=== PATIENT | male | born 1955 | race Caucasian/White ===

== ENCOUNTER 2018-06-22 08:30 | Emergency (ER) | payer MEDICARE ==
[~2018-06-22] VITALS: Ht 198.1 cm; Wt 100.0 kg
[~2018-06-22 08:30] MED LIST: AMOXICILLIN500 MG PO; BUMETANIDE1 MG PO; CIPROFLOXACN500 MG PO; FUROSEMIDE 20 MG; JANUVIA50 MG PO; LANTUS SLIDING SCALE; LEFLUNOMIDE PO; METFORMIN500 MG PO; METOLAZONE5 MG PO; POT CHLORIDE20 ME3 PO; WARFARIN10 MG PO; ZESTRIL/PRIN5 MG/TA1 PO; [UNRECOGNIZED DRUG - REMARK]
[2018-06-22] MEDS ORDERED: DOXYCYC MONO100 M1 PO (08:48)
[2018-06-22 08:57] VITALS: BP 165/96
== END 2018-06-22 09:56 | disposition home or self-care (01) ==
LOC: ED 08:30
DX: S91.112A Laceration without foreign body of left great toe without damage to nail, initial encounter (principal); E11.42 Type 2 diabetes mellitus with diabetic polyneuropathy; I48.91 Unspecified atrial fibrillation; I50.9 Heart failure, unspecified; X58.XXXA Exposure to other specified factors, initial encounter

== ENCOUNTER 2018-11-05 09:32 | Inpatient (IN) | payer MEDICARE ==
[~2018-11-05] VITALS: Ht 198.1 cm; Wt 112.0 kg
[2018-11-05] VITALS (11 sets, daily range): BP systolic 100–135; BP diastolic 61–86
[~2018-11-05 09:32] MED LIST changes: +DOXYCYC MONO100 M1 PO
--- NOTE | 2018-11-05 10:02 | NUR ---
PT TO ROOM VIA SCOOTER IN NO DISTRESS
[2018-11-05 10:31] LABS: HEMATOCRIT 39.9 % (39.0-50.0); HEMOGLOBIN 12.2 g/dl (14.0-18.0); IMMATURE GRANULOCYTES 0.2 % (0.0-5.0); MEAN CELL VOLUME 91.5 fL CALC (80.0-100.0); MEAN CORPUSCULAR HGB CONC 30.6 g/L CALC (32.0-36.0); NEUT# 3.25 thou/uL (1.82-7.42); RED BLOOD COUNT 4.36 mill/uL (4.70-6.10); RED CELL DISTRI WIDTH 15.8 % (11.5-15.5)
[2018-11-05 10:44] LABS: BILIRUBIN, TOTAL 0.9 mg/dL (0.0-1.4); POTASSIUM 3.8 mmol/l (3.5-5.1); TOTAL PROTEIN 7.2 g/dL (6.3-8.2)
[2018-11-05 10:46] LABS: ALBUMIN 4.1 g/dL (3.2-5.0)
--- NOTE | 2018-11-05 11:00 | NUR ---
PT SITTING ON EDGE OF STRETHCER, DUE TO BEING UNCOMFORTABLE LAYING- AWAITING RESULTS.
--- NOTE | 2018-11-05 11:41 | NUR ---
RT AT BEDSIDE WITH ROWAN TX
--- NOTE | 2018-11-05 11:43 | NUR ---
MD AT BEDSIDE TO EXPLAIN FINDINGS AND ADMISSION
[2018-11-05 12:15] LABS: INTERNATIONAL NORMALIZED RATIO 3.7 RATIO (0.7-1.3); PROTHROMBIN TIME 38.5 SECONDS (9.0-12.5)
--- NOTE | 2018-11-05 12:43 | NUR ---
PT STATES HAVING BREATHING IMPROVMENT WITH NEB TX- AWAITING ADMISSION
--- NOTE | 2018-11-05 13:19 | NUR ---
REPORT CALLED TO ODETTE SULLIVAN- ACCPEPTED PT
--- NOTE | 2018-11-05 13:38 | NUR ---
Admission Note Report Given to: ODETTE SULLIVAN Transported by: Wheelchair X Stretcher Transported with: X Nurse Transporter X Patent IV O2 X Hemmer Chainstitch TRANSPORTED TO [facility] WITHOUT INCIDENT- AYANNA CHAIR BROUGHT WITH PT TO ROOM
--- NOTE | 2018-11-05 15:31 | NUR ---
REPORT RECEIVED FROM SAJAN IN ED, PT ARRIVED ON UNIT VIA STRETCHER AND TRANSFERRED TO BED. ALERT AND ORIENTED X 4, ORIENTED TO ROOM AND CALL LOUIS. C/O BEING COLD, GENERALISED PAIN @ 10/10 MAINLY TO EXTREMETIES, MENTAL HEALTH NURSE NOTIFIED AND WROTE ORDERS, PAIN ISSUE ADDRESSED, TELE MONITOR IN PLACE, CALL LOUIS IN REACH, WILL CONITNUE TO MONITOR.
[2018-11-05 17:06] LABS: URINE BILIRUBIN - DIPSTICK NEGATIVE (NEGATIVE); URINE BLOOD DIPSTICK SMALL (NEGATIVE); URINE COLOR YELLOW; URINE GLUCOSE - DIPSTICK NEGATIVE (NEGATIVE); URINE KETONE NEGATIVE (NEGATIVE); URINE LEUK ESTERASE NEGATIVE (NEGATIVE); URINE NITRITE - DIPSTICK NEGATIVE (Negative); URINE PROTEIN - DIPSTICK 30 mg/dL (NEG-TRACE); URINE SPECIFIC GRAVITY 1.015; URINE UROBILINOGEN - DIPSTICK 0.2 E.U./dL (0.2)
[2018-11-05 17:17] LABS: MAGNESIUM 1.7 mg/dL (1.6-2.3)
--- NOTE | 2018-11-05 17:44 | NUR ---
RT at [facility] for stat EKG
--- NOTE | 2018-11-05 18:04 | NUR ---
TRANSFERRED TO [facility] AT THIS TIME AND TRANSPORTED TO CT, THEN WILL BE TRANSFERRED TO ICU ORDERED BY MEDICAL STAFF.
--- NOTE | 2018-11-05 18:05 | NUR ---
pt transferred to CT scan via stretcher with portable o2 in stable condition; Gorge Kelly RN and Ashley Edmond CNA remains with pt
--- NOTE | 2018-11-05 18:06 | NUR ---
INFORMED LEA PIPELINES LABORER RE: LACTIC ACID OF 3.4
--- NOTE | 2018-11-05 18:15 | NUR ---
pt arrived to ICU via stretcher accompanied by this caption writer and Ashley Edmond CNA in stable condition; pt alert and oriented; pt with complaints of pain to lower extremities; resp even and unlabored; hi lakesha o2 per nc at 10L; bipap at bedside and to be initiated; skin color wnl; hr irreg/ wide qrs complex; rate 101 on monitor; abd soft/distended with bs present; no bm noted; no urine to inspect at this time; #20 in lh intact; plan of care/ meds/ procedures/ transfer explained; will continue to monitor
--- NOTE | 2018-11-05 18:29 | NUR ---
16 Fr westfall catheter inserted using sterile technique x1 attempt per Ashley Wilson LPN; clear yellow urine noted; cath moreno device intact;
--- NOTE | 2018-11-05 18:35 | NUR ---
report given to Gorge Garcia LPN
--- NOTE | 2018-11-05 18:35 | NUR ---
CALLED Bill DIAZ RE: PT IN ICU, NEED TRANSFER ORDERS AND INFORMED RE: LACTIC ACID OF 3.4 RECORDS ANALYSIS MANAGER NOT WANTING TO ADD FLUIDS DUE TO FLUID CHALLENGE. HE WILL PLACE ORDERS IN.
[2018-11-05 18:46] LABS: URINE SQUAMOUS EPITHELIAL CELL FEW EPI/hpf (0-FEW)
--- NOTE | 2018-11-05 19:00 | NUR ---
awake. coarse breath sounds bilat. has moist nonprod cough. rt @ bedside & bipap on. instructed pt about need for bipap. cafeteria monitor shows a fib ivcd pvcs. #20 lt hand saline lock. westfall cath in place. urine blood tinged yellow. fall precautions cont.
--- NOTE | 2018-11-05 19:10 | NUR ---
erin @ bedside. pt requested h2o. sip given.
--- NOTE | 2018-11-05 19:11 | NUR ---
PLACED ON BIPAP ORDERED MY MD. PLACED ON 19/02, RATE 15 WITH 50%. WILL CONTINUE TO MONITOR.
--- NOTE | 2018-11-05 19:15 | NUR ---
Dr Rowley called per underwriter mortgage loan; orders reviewed/ clarifications needed; orders to hold Bumex gtt received until CT report reviewed per MD; reported to Gorge Garcia LPN
--- NOTE | 2018-11-05 19:25 | NUR ---
requested bipap to be d/c'd. expresses diff resps, anxiety & pain. morphine 2mg ivp given. lab here. blood drawn.
--- NOTE | 2018-11-05 19:35 | NUR ---
resting quietly. no apparent distress.
--- NOTE | 2018-11-05 20:15 | NUR ---
jean carlos called this check writer. admits she is unable to get on computer. ct results given. orders rec'd.
--- NOTE | 2018-11-05 22:00 | NUR ---
eyes closed. no apparent distress. environmental monitoring technician shows a fib ivcd pvcs. bipap cont.
[2018-11-06] VITALS (12 sets, daily range): BP systolic 110–152; BP diastolic 55–87
--- NOTE | 2018-11-06 00:01 | NUR ---
awakens easily then returns to sleep. no distress. bipap cont.
--- NOTE | 2018-11-06 00:10 | NUR ---
lab here. blood drawn.
--- NOTE | 2018-11-06 02:00 | NUR ---
resting quietly. resps even & unlabored. bipap cont.
--- NOTE | 2018-11-06 04:00 | NUR ---
eyes closed. no apparent distress. nuclear monitoring technician shows a fib pvcs ivcd.
--- NOTE | 2018-11-06 06:11 | NUR ---
lab here. blood drawn.
[2018-11-06 06:50] LABS: INTERNATIONAL NORMALIZED RATIO 4.5 RATIO (0.7-1.3); PROTHROMBIN TIME 46.6 SECONDS (9.0-12.5)
[2018-11-06 07:06] LABS: ALBUMIN 3.9 g/dL (3.2-5.0); BILIRUBIN, TOTAL 0.9 mg/dL (0.0-1.4); CREATININE 1.9 mg/dL (0.7-1.3); POTASSIUM 4.1 mmol/l (3.5-5.1); TOTAL PROTEIN 6.7 g/dL (6.3-8.2)
--- NOTE | 2018-11-06 07:08 | NUR ---
REPORT RECVD FROM LUL DONG AT START OF SHIFTS.
--- NOTE | 2018-11-06 07:25 | NUR ---
PT ON BIPAP. C/O CHRONIC PAIN TO BILATERAL UPPER ARMS, JOINTS DISFORMED FROM RHEUMATOID ARTHRITIS. CATH AGUILERA IN PLACE, BLOODY URINE DRAINING INTO BAG. PT JOKING WITH STAFF. BIPAP REMOVED MOMENTARILY TO DRINK WATER. ABD SOFT/NONTENDER, ACTIVE BS. NO EDEMA NOTED. STRONG PULSES x4. FEET HOT, TOES RED, SWOLLEN, BILATERALLY. FERNANDEZ. LUNG SOUNDS WHEEZING/CRACKLES/DIMINISHED. EYES PERRLA @3. PT STATES HE LIVES BY HIMSELF BUT HIS NEICE COMES BY TO HELP & HE HAS A LADY THAT COMES BY 8HR/WEEK TO CLEAN. PT AWARE SPUTUM SAMPLE IS NEEDED. LABS & RADIOLOGY REVIEWED.
--- NOTE | 2018-11-06 07:39 | NUR ---
PT SITTING UP IN BED, EATING BREAKFAST. BIPAP PAUSED, PT ON 10L NC. PT REQUEST NONSWEET GUMMY WORMS WITH CBD OIL FROM PERSONAL BAG FOR PAIN. ADVISED PT WILL SPEAK TO MD ABOUT THIS FOR OK TO GIVE PT. PT COOPERATIVE/FRIENDLY WITH STAFF. INVESTOR RELATIONS ANALYST ASSISTING PT WITH BREAKFAST.
--- NOTE | 2018-11-06 08:00 | NUR ---
Vancomycin consult Age: 63 yo Serum creatinine: 1.9 mg/dL Height: 78.0 Inches Weight (kg): 112. IBW (kg): 91.40 Dosing wt(kg): 112. Estimated Creatinine clearance (ml/min): 51.4 CRCL method: Cockcroft and Gault using ibw(default). Vd (liters): 78.4 (factor used: 0.7 L/kg) Lewis (hr-1): 0.047 Half life (hrs): 14.75 1000 mg Q12H with an expected Cpeak of 28 mcg/ml and an expected Ctrough of 17 mcg/ml
--- NOTE | 2018-11-06 08:07 | NUR ---
SPUTUM SAMPLE GIVEN.
--- NOTE | 2018-11-06 08:20 | NUR ---
pt sitting up on side of bed. playfull with staff. talking on the phone.
--- NOTE | 2018-11-06 08:40 | NUR ---
PT ASSISTED UP TO BSC FOR BM. SPUTUM CULTURE SENT TO LAB
--- NOTE | 2018-11-06 09:01 | NUR ---
PT ASSISTED BACK TO BED, RETURNED TO BIPAP.
--- NOTE | 2018-11-06 09:37 | NUR ---
DR WILLS @BEDSIDE, ASSESSING PT. MD STATES GUMMY WORMS WITH CBD OIL IS OK TO TAKE.
--- NOTE | 2018-11-06 09:51 | NUR ---
states to hold am po meds. admin @bedside for rounds.
--- NOTE | 2018-11-06 10:41 | NUR ---
TRANSFER PENDING DR WILLS CONSULTING WITH DR DIAZ. YANG WILLIAMSON PENDING APPROVAL FROM [facility].
--- NOTE | 2018-11-06 11:49 | NUR ---
PT SITTING UP ON SIDE OF BED, EATING LUNCH. RT @BEDSIDE. PLACED PT ON 10L HUMIDIFIED O2 NC. PT EDUCATED ON MEDICATION GIVEN.
--- NOTE | 2018-11-06 11:59 | NUR ---
PER RAMON RT, FROM DR WILLS, TRY TO KEEP PT OFF BIPAP AND TRY TO WEAN DOWN 02. RT TITRATED O2 TO 8L NC. WILL CONTINUE TO MONITOR. TRANSFER PENDING CONSULT WITH DR DIAZ.
--- NOTE | 2018-11-06 12:15 | NUR ---
SPOKE WITH CYDNEY, NURSING QA SOFTWARE TEST ENGINEER, @ [facility] RE: BED. WCB.
--- NOTE | 2018-11-06 12:24 | NUR ---
DR DIAZ ACCEPTED PT FOR PCU
--- NOTE | 2018-11-06 12:46 | NUR ---
ASSISTED PT WITH BEDBATH, INCLUDING PERICARE. PT BRUSHED OWN TEETH. CHANGED GOWN. PT AWARE OF TRANSFER TO [facility]. TRANSFER PENDING BED ASSIGNMENT THEN TRANSPORTATION.
--- NOTE | 2018-11-06 13:30 | NUR ---
PT MANEUVERED SELF BACK TO BED. CALLBELL W/IN REACH. CASE MANAGEMENT @BEDSIDE FOR TRANSFER SIGNATURES.
--- NOTE | 2018-11-06 13:51 | NUR ---
PT RETURNED TO BED. ASKED TO BE COVERED UP SO HE "CAN SLEEP UNTIL TRANSFER COMPLETE". CALLBELL W/IN REACH.
--- NOTE | 2018-11-06 14:02 | NUR ---
CYDNEY CALLED BACK WITH A BED ASSIGNMENT. PT WILL GO TO 322B.
--- NOTE | 2018-11-06 14:04 | NUR ---
[facility], WILL SEND TRANSPORTATION IN 30MINS FOR TRANSFER.
--- NOTE | 2018-11-06 14:30 | NUR ---
[facility] @bedside.
--- NOTE | 2018-11-06 14:54 | NUR ---
PT OUT THE DOOR WITH [facility] IN STABLE CONDITION. PTS MOBILITY DEVICE MOVED TO ICU STORAGE ROOM TO HOLD UNTIL ANNAMARIA AKBAR COMES TO PICK IT UP. MARGAUX & CASE MANAGEMENT AWARE
--- NOTE | 2018-11-06 15:15 | NUR ---
REPORT CALLED TO ADRIANA AT [phone], INCLUDING PT IN POSSESSION OF CBD OIL GUMMY WORMS.
== END 2018-11-06 14:54 | DRG 291 ==
LOC: ED 09:32 → ED-I 11:32 → ED 12:21 → MS2 12:22 → ICU 12:22
PROVIDERS: Emergency Medicine; Nurse Practitioner Family; ADMIT Internal Medicine; ATTEND Internal Medicine Nephrology
PROC: 5A09357 Assistance with Respiratory Ventilation, Less than 24 Consecutive Hours, Continuous Positive Airway Pressure (ICD-10-PCS; principal; 2018-11-05)
PROC: 0T9B70Z Drainage of Bladder with Drainage Device, Via Natural or Artificial Opening (ICD-10-PCS; 2018-11-05)
DX: I13.0 Hypertensive heart and chronic kidney disease with heart failure and stage 1 through stage 4 chronic kidney disease, or unspecified chronic kidney disease (principal); J96.01 Acute respiratory failure with hypoxia; J18.9 Pneumonia, unspecified organism; I50.23 Acute on chronic systolic (congestive) heart failure; J91.8 Pleural effusion in other conditions classified elsewhere; N17.9 Acute kidney failure, unspecified; E11.22 Type 2 diabetes mellitus with diabetic chronic kidney disease; N18.3 Chronic kidney disease, stage 3 (moderate); E11.21 Type 2 diabetes mellitus with diabetic nephropathy; M06.9 Rheumatoid arthritis, unspecified; I48.2 Chronic atrial fibrillation; D63.1 Anemia in chronic kidney disease; R91.8 Other nonspecific abnormal finding of lung field; R79.1 Abnormal coagulation profile; T45.515A Adverse effect of anticoagulants, initial encounter; I73.89 Other specified peripheral vascular diseases; I45.10 Unspecified right bundle-branch block; Z79.01 Long term (current) use of anticoagulants

== ENCOUNTER 2018-12-05 08:25 | Emergency (ER) | payer MEDICARE ==
[~2018-12-05] VITALS: Ht 198.1 cm; Wt 120.0 kg
[2018-12-05 09:51] LABS: HEMOGLOBIN 10.9 g/dl (14.0-18.0); IMMATURE GRANULOCYTES 0.6 % (0.0-5.0); MEAN CELL VOLUME 95.9 fL CALC (80.0-100.0); MEAN CORPUSCULAR HGB 28.2 pG CALC (26.0-32.0); MEAN CORPUSCULAR HGB CONC 29.5 g/L CALC (32.0-36.0); NEUT# 3.79 thou/uL (1.82-7.42); RED BLOOD COUNT 3.86 mill/uL (4.70-6.10); RED CELL DISTRI WIDTH 18.5 % (11.5-15.5)
[2018-12-05 09:51] LABS: URINE BILIRUBIN - DIPSTICK NEGATIVE (NEGATIVE); URINE BLOOD DIPSTICK TRACE-INTACT (NEGATIVE); URINE COLOR YELLOW; URINE GLUCOSE - DIPSTICK NEGATIVE (NEGATIVE); URINE KETONE NEGATIVE (NEGATIVE); URINE LEUK ESTERASE NEGATIVE (NEGATIVE); URINE NITRITE - DIPSTICK NEGATIVE (Negative); URINE PROTEIN - DIPSTICK TRACE mg/dL (NEG-TRACE); URINE UROBILINOGEN - DIPSTICK 0.2 E.U./dL (0.2)
[2018-12-05 10:04] LABS: INTERNATIONAL NORMALIZED RATIO 2.1 RATIO (0.7-1.3); PROTHROMBIN TIME 21.4 SECONDS (9.0-12.5)
[2018-12-05 10:06] LABS: ALBUMIN 3.6 g/dL (3.2-5.0); BILIRUBIN, TOTAL 1.7 mg/dL (0.0-1.4); CREATININE 1.5 mg/dL (0.7-1.3); POTASSIUM 3.7 mmol/l (3.5-5.1); TOTAL PROTEIN 6.6 g/dL (6.3-8.2)
[2018-12-05] MEDS ORDERED: COUMADIN5 MG PO (11:22)
[2018-12-05] MEDS ORDERED: WARFARIN10 MG PO (11:23)
[2018-12-05] MEDS ORDERED: TAMSULOSIN HCL0.4 MG PO (11:25)
[2018-12-05] MEDS ORDERED: HYDROCO/APAP1 TA9 PO (11:26)
[2018-12-05] MEDS ORDERED: POT CHLORIDE10 ME1 PO (11:26)
[2018-12-05] MEDS ORDERED: KEFLEX500 M1 PO (11:54)
[2018-12-05 12:04] VITALS: BP 151/63
== END 2018-12-05 12:25 | disposition home or self-care (01) ==
LOC: ED 08:25
PROVIDERS: Emergency Medicine
PROC: 0T9B70Z Drainage of Bladder with Drainage Device, Via Natural or Artificial Opening (ICD-10-PCS; principal; 2018-12-05)
DX: N40.1 Benign prostatic hyperplasia with lower urinary tract symptoms (principal); R33.8 Other retention of urine; E11.9 Type 2 diabetes mellitus without complications; I50.9 Heart failure, unspecified; I48.91 Unspecified atrial fibrillation

== ENCOUNTER 2018-12-07 15:17 | Emergency (ER) | payer MEDICARE ==
[~2018-12-07] VITALS: Ht 198.1 cm; Wt 125.0 kg
[~2018-12-07 15:17] MED LIST changes: +COUMADIN5 MG PO; +HYDROCO/APAP1 TA9 PO; +KEFLEX500 M1 PO; +POT CHLORIDE10 ME1 PO; +TAMSULOSIN HCL0.4 MG PO
[2018-12-07 16:09] VITALS: BP 126/69
== END 2018-12-07 17:20 | disposition home or self-care (01) ==
LOC: ED 15:17
PROC: 0T2BX0Z Change Drainage Device in Bladder, External Approach (ICD-10-PCS; principal; 2018-12-07)
DX: T83.091A Other mechanical complication of indwelling urethral catheter, initial encounter (principal); R33.9 Retention of urine, unspecified; E11.9 Type 2 diabetes mellitus without complications; I48.91 Unspecified atrial fibrillation; I50.9 Heart failure, unspecified; Y84.6 Urinary catheterization as the cause of abnormal reaction of the patient, or of later complication, without mention of misadventure at the time of the procedure

== ENCOUNTER 2018-12-11 18:50 | Emergency (ER) | payer MEDICARE ==
[~2018-12-11] VITALS: Ht 198.1 cm; Wt 122.7 kg
[2018-12-11 20:26] VITALS: BP 134/76
== END 2018-12-11 20:25 | disposition home or self-care (01) ==
LOC: ED 18:50
DX: T83.038A Leakage of other urinary catheter, initial encounter (principal)

== ENCOUNTER 2018-12-13 08:56 | Emergency (ER) | payer MEDICARE ==
[~2018-12-13] VITALS: Ht 198.1 cm; Wt 100.0 kg
[2018-12-13] MEDS ORDERED: LAMISIL AT1 % EX (10:04)
[2018-12-13 10:36] VITALS: BP 139/90
== END 2018-12-13 11:10 | disposition home or self-care (01) ==
LOC: ED 08:56
PROC: 0T2BX0Z Change Drainage Device in Bladder, External Approach (ICD-10-PCS; principal; 2018-12-13)
DX: T83.031A Leakage of indwelling urethral catheter, initial encounter (principal); N40.1 Benign prostatic hyperplasia with lower urinary tract symptoms; R33.8 Other retention of urine; E11.9 Type 2 diabetes mellitus without complications; I48.91 Unspecified atrial fibrillation; M06.9 Rheumatoid arthritis, unspecified; I50.9 Heart failure, unspecified; B35.6 Tinea cruris; Y84.6 Urinary catheterization as the cause of abnormal reaction of the patient, or of later complication, without mention of misadventure at the time of the procedure

== ENCOUNTER 2019-01-07 21:02 | Emergency (ER) | payer MEDICARE ==
[~2019-01-07] VITALS: Ht 198.1 cm; Wt 110.0 kg
[~2019-01-07 21:02] MED LIST changes: +LAMISIL AT1 % EX
[2019-01-07 21:49] LABS: HEMATOCRIT 36.6 % (39.0-50.0); HEMOGLOBIN 11.1 g/dl (14.0-18.0); IMMATURE GRANULOCYTES 0.5 % (0.0-5.0); MEAN CELL VOLUME 95.1 fL CALC (80.0-100.0); MEAN CORPUSCULAR HGB 28.8 pG CALC (26.0-32.0); MEAN CORPUSCULAR HGB CONC 30.3 g/L CALC (32.0-36.0); NEUT# 10.19 thou/uL (1.82-7.42); RED BLOOD COUNT 3.85 mill/uL (4.70-6.10); RED CELL DISTRI WIDTH 16.2 % (11.5-15.5)
[2019-01-07 21:57] LABS: ALBUMIN 3.8 g/dL (3.2-5.0); BILIRUBIN, TOTAL 1.5 mg/dL (0.0-1.4); CREATININE 1.6 mg/dL (0.7-1.3); POTASSIUM 4.1 mmol/l (3.5-5.1); TOTAL PROTEIN 6.8 g/dL (6.3-8.2)
[2019-01-07 22:17] LABS: INTERNATIONAL NORMALIZED RATIO 1.2 RATIO (0.7-1.3); PROTHROMBIN TIME 12.9 SECONDS (9.0-12.5)
[2019-01-07 22:26] LABS: URINE BILIRUBIN - DIPSTICK NEGATIVE (NEGATIVE); URINE BLOOD DIPSTICK MODERATE (NEGATIVE); URINE COLOR YELLOW; URINE GLUCOSE - DIPSTICK NEGATIVE (NEGATIVE); URINE KETONE NEGATIVE (NEGATIVE); URINE NITRITE - DIPSTICK NEGATIVE (Negative); URINE PROTEIN - DIPSTICK 30 mg/dL (NEG-TRACE); URINE SPECIFIC GRAVITY 1.015; URINE UROBILINOGEN - DIPSTICK 0.2 E.U./dL (0.2)
[2019-01-07] MEDS ORDERED: ZPAK PO (22:31)
[2019-01-07] MEDS ORDERED: CEPHALEXIN500 M1 PO (22:31)
[2019-01-07 22:32] LABS: URINE LEUK ESTERASE SMALL (NEGATIVE)
[2019-01-07 22:33] LABS: URINE BACTERIA FEW hpf; URINE SQUAMOUS EPITHELIAL CELL FEW EPI/hpf (0-FEW)
[2019-01-07 22:42] LABS: URINE RBC TNTC RBC/hpf (0-5)
[2019-01-07 22:43] LABS: URINE WBC 20-50 WBC/hpf (0-5)
[2019-01-07 23:06] VITALS: BP 145/72
== END 2019-01-07 23:02 | disposition left against medical advice (07) ==
LOC: ED 21:02
PROVIDERS: Emergency Medicine
PROC: 0T9B70Z Drainage of Bladder with Drainage Device, Via Natural or Artificial Opening (ICD-10-PCS; principal; 2019-01-07)
DX: N39.0 Urinary tract infection, site not specified (principal); R33.9 Retention of urine, unspecified; R30.0 Dysuria; R50.9 Fever, unspecified; J18.9 Pneumonia, unspecified organism; Z91.19 Patient's noncompliance with other medical treatment and regimen; B96.89 Other specified bacterial agents as the cause of diseases classified elsewhere

== ENCOUNTER 2019-01-13 11:21 | Emergency (ER) | payer MEDICARE ==
[~2019-01-13] VITALS: Ht 198.1 cm; Wt 119.0 kg
[~2019-01-13 11:21] MED LIST changes: +CEPHALEXIN500 M1 PO; +ZPAK PO
[2019-01-13 12:40] VITALS: BP 158/110
[2019-01-13 12:48] LABS: URINE BILIRUBIN - DIPSTICK NEGATIVE (NEGATIVE); URINE BLOOD DIPSTICK MODERATE (NEGATIVE); URINE COLOR YELLOW; URINE GLUCOSE - DIPSTICK NEGATIVE (NEGATIVE); URINE KETONE NEGATIVE (NEGATIVE); URINE LEUK ESTERASE NEGATIVE (Negative); URINE NITRITE - DIPSTICK NEGATIVE (Negative); URINE PH 6.5 (4.5-8.0); URINE PROTEIN - DIPSTICK 100 mg/dL (NEG-TRACE); URINE UROBILINOGEN - DIPSTICK 0.2 E.U./dL (0.2)
[2019-01-13 12:52] LABS: URINE CLARITY CLEAR
== END 2019-01-13 12:53 | disposition home or self-care (01) ==
LOC: ED 11:21
PROVIDERS: Emergency Medicine
PROC: 0T2BX0Z Change Drainage Device in Bladder, External Approach (ICD-10-PCS; principal; 2019-01-13)
DX: T83.031A Leakage of indwelling urethral catheter, initial encounter (principal); R33.9 Retention of urine, unspecified; E11.9 Type 2 diabetes mellitus without complications; I48.91 Unspecified atrial fibrillation; I50.9 Heart failure, unspecified; M06.9 Rheumatoid arthritis, unspecified; Y84.6 Urinary catheterization as the cause of abnormal reaction of the patient, or of later complication, without mention of misadventure at the time of the procedure

== ENCOUNTER 2019-01-16 10:15 | Observation (INO) | payer MEDICARE ==
[~2019-01-16] VITALS: Ht 198.1 cm; Wt 133.0 kg
--- NOTE | 2019-01-16 10:15 | NUR ---
PT ARRIVES VIA ELECTRIC WC IN NO DISTRESS.
[2019-01-16] MEDS ORDERED: ZESTRIL/PRINIV2.5 MG PO (10:35)
[2019-01-16 11:17] LABS: MAGNESIUM 1.4 mg/dL (1.6-2.3)
--- NOTE | 2019-01-16 11:47 | NUR ---
PT WITH IV ESTABLISHED, MAGNESIUM STARTED. GRANDSON AT BEDSIDE.
--- NOTE | 2019-01-16 12:19 | NUR ---
MEAL TRAY PROVIDED. MAGNESIUM INFUSING. PT SITTING UP AT BEDSIDE FOR COMFORT.
--- NOTE | 2019-01-16 13:21 | NUR ---
PT ASSISTED BACK INTO STRETCHER, AWARE OF PENDING ADMISSION.
[2019-01-16 14:30] VITALS: BP 143/76
--- NOTE | 2019-01-16 14:36 | NUR ---
PT TAKEN TO ROOM 261 WITHOUT INCIDENT, REPORT WAS TO JOSE D.
--- NOTE | 2019-01-16 14:38 | NUR ---
REPORT RECEIVED FROM ANGELINE IN ED, PT ARRIVED ON UNIT VIA STRETCHER AND TRANSFERRED TO BED. ALERT AND ORIENTED X 3, ORIENTED TO ROOM AND CALL LOUIS, DENIES PAIN AT THIS TIME, NO C/O DISCOMFORT, SETTLED IN BED CALL LOUIS IN REACH AT THIS TIME.
--- NOTE | 2019-01-16 19:00 | NUR ---
REPORT RECEIVED FROM LAURIE JEFFERY. PT RESTING IN BED ALERT AND ORIENTED. GRANDSON AT BEDSIDE. NO S/S OF DISTRESS AT THIS TIME. WILL CONTINUE TO MONITOR.
[2019-01-16 19:10] VITALS: BP 119/80
--- NOTE | 2019-01-16 19:45 | NUR ---
PT RESTING IN BED, ALERT AND ORIENTED, GRANDSON AT BEDSIDE. RESPIRATIONS EVEN AND UNLABORED, LUNGS SOUND CLEAR. TELE MONITOR IN PLACE. PT DENIES ANY PAIN AT THIS TIME. PROVIDED PT GRANDSON WITH A PILLOW AND BLANKET. ASSISTED PT TO REPOSTION TO HIS RIGHT SIDE. CALL LOUIS WITHIN REACH. WILL CONTINUE TO MONITOR.
[2019-01-17] VITALS: BP 133/78
--- NOTE | 2019-01-17 01:55 | NUR ---
PT RESTING IN BED. NO S/S OF DISTRESS AT THIS TIME. SAFETY PRECAUTIONS IN PLACE. WILL CONTINUE TO MONITOR.
[2019-01-17 03:00] VITALS: BP 129/76
--- NOTE | 2019-01-17 05:10 | NUR ---
PT RESTING IN BED. RESPIRATIONS EVEN AND UNLABORED. NO S/S OF DISTRESS AT THIS TIME. TELE IN PLACE. WILL CONTINUE TO MONITOR.
[2019-01-17 05:24] LABS: HEMATOCRIT 35.4 % (39.0-50.0); HEMOGLOBIN 10.7 g/dl (14.0-18.0); IMMATURE GRANULOCYTES 0.4 % (0.0-5.0); MEAN CELL VOLUME 95.2 fL CALC (80.0-100.0); MEAN CORPUSCULAR HGB 28.8 pG CALC (26.0-32.0); MEAN CORPUSCULAR HGB CONC 30.2 g/L CALC (32.0-36.0); NEUT# 3.12 thou/uL (1.82-7.42); RED BLOOD COUNT 3.72 mill/uL (4.70-6.10); RED CELL DISTRI WIDTH 16.2 % (11.5-15.5)
[2019-01-17 05:35] LABS: ALBUMIN 3.2 g/dL (3.2-5.0); BILIRUBIN, TOTAL 0.7 mg/dL (0.0-1.4); CREATININE 1.5 mg/dL (0.7-1.3); MAGNESIUM 1.7 mg/dL (1.6-2.3); POTASSIUM 4.3 mmol/l (3.5-5.1)
--- NOTE | 2019-01-17 07:00 | NUR ---
SHIFT CHANGE REPORT, PT AWAKE ALERT AND ORIENTED IN RIGHT-SIDE LYING POSITION IN BED, NO C/O DISCOMFORT, TELE MONITOR IN PLACE, AGUILERA CATHETER IN PLACE WITH TRINA CLEAR URINE, CALL LOUIS IN REACH.
[2019-01-17 08:41] VITALS: BP 152/98
[2019-01-17 10:40] VITALS: BP 132/83
--- NOTE | 2019-01-17 15:12 | NUR ---
Discharge instructions given. Patient verbalizes understanding of same. Discharged in good condition via Wheelchair to Home with family. All belongings sent with pt.
== END 2019-01-17 15:00 | disposition home or self-care (01) ==
LOC: ED 10:15 → ED-I 12:12 → ED 12:50 → MS2 12:51
PROVIDERS: ADMIT Internal Medicine Nephrology; ATTEND Internal Medicine Nephrology
DX: E83.42 Hypomagnesemia (principal); E87.6 Hypokalemia; E11.22 Type 2 diabetes mellitus with diabetic chronic kidney disease; N18.3 Chronic kidney disease, stage 3 (moderate); I45.10 Unspecified right bundle-branch block; I48.2 Chronic atrial fibrillation; I50.9 Heart failure, unspecified; N40.1 Benign prostatic hyperplasia with lower urinary tract symptoms; R33.8 Other retention of urine; J44.9 Chronic obstructive pulmonary disease, unspecified; M06.9 Rheumatoid arthritis, unspecified; E66.9 Obesity, unspecified; Z79.01 Long term (current) use of anticoagulants; Z68.33 Body mass index [BMI] 33.0-33.9, adult
CPT/HCPCS: J1650; J3475

== ENCOUNTER 2019-02-06 13:12 | Emergency (ER) | payer MEDICARE ==
[~2019-02-06] VITALS: Ht 198.1 cm; Wt 120.0 kg
[~2019-02-06 13:12] MED LIST changes: +ZESTRIL/PRINIV2.5 MG PO
[2019-02-06 14:03] LABS: HEMATOCRIT 34.7 % (39.0-50.0); HEMOGLOBIN 10.4 g/dl (14.0-18.0); IMMATURE GRANULOCYTES 0.3 % (0.0-5.0); MEAN CELL VOLUME 95.6 fL CALC (80.0-100.0); MEAN CORPUSCULAR HGB 28.7 pG CALC (26.0-32.0); NEUT# 2.27 thou/uL (1.82-7.42); RED BLOOD COUNT 3.63 mill/uL (4.70-6.10); RED CELL DISTRI WIDTH 17.1 % (11.5-15.5)
[2019-02-06 14:18] LABS: ALBUMIN 3.3 g/dL (3.2-5.0); BILIRUBIN, TOTAL 0.9 mg/dL (0.0-1.4); CREATININE 1.6 mg/dL (0.7-1.3); POTASSIUM 3.7 mmol/l (3.5-5.1); TOTAL PROTEIN 5.9 g/dL (6.3-8.2)
[2019-02-06 14:30] LABS: INTERNATIONAL NORMALIZED RATIO 1.3 RATIO (0.7-1.3); PROTHROMBIN TIME 13.4 SECONDS (9.0-12.5)
[2019-02-06 14:49] LABS: TSH, 3RD GENERATION 2.8 uIU/mL (0.47 - 4.68)
[2019-02-06 16:00] LABS: URINE BILIRUBIN - DIPSTICK NEGATIVE (NEGATIVE); URINE BLOOD DIPSTICK SMALL (NEGATIVE); URINE COLOR YELLOW; URINE GLUCOSE - DIPSTICK NEGATIVE (NEGATIVE); URINE KETONE NEGATIVE (NEGATIVE); URINE LEUK ESTERASE NEGATIVE (NEGATIVE); URINE NITRITE - DIPSTICK NEGATIVE (Negative); URINE PH 5.5 (4.5-8.0); URINE PROTEIN - DIPSTICK 100 mg/dL (NEG-TRACE); URINE UROBILINOGEN - DIPSTICK 0.2 E.U./dL (0.2)
[2019-02-06 16:01] LABS: URINE RBC 0-2 RBC/hpf (0-5)
[2019-02-06 16:08] LABS: BARBITURATES NEGATIVE (NEGATIVE); COCAINE NEGATIVE (NEGATIVE); METHADONE NEGATIVE (NEGATIVE); OXCYCODONE NEGATIVE (NEGATIVE); TETRAHYDROCANNABIONOL NEGATIVE (NEGATIVE); TRICYLIC ANTIDEPRESSANTS NEGATIVE (NEGATIVE)
[2019-02-06] MEDS ORDERED: LASIX 40 MG TAB40 MG PO (16:36)
[2019-02-06 16:38] VITALS: BP 116/80
== END 2019-02-06 16:38 | disposition home or self-care (01) ==
LOC: ED 13:12
PROVIDERS: Emergency Medicine
DX: R60.0 Localized edema (principal); I48.91 Unspecified atrial fibrillation; I50.9 Heart failure, unspecified; J91.8 Pleural effusion in other conditions classified elsewhere; E11.9 Type 2 diabetes mellitus without complications; Z79.01 Long term (current) use of anticoagulants; M79.89 Other specified soft tissue disorders
CPT/HCPCS: J1650

== ENCOUNTER 2019-03-11 17:41 | Emergency (ER) | payer MEDICARE ==
[~2019-03-11] VITALS: Ht 198.1 cm; Wt 122.7 kg
[~2019-03-11 17:41] MED LIST changes: +LASIX 40 MG TAB40 MG PO
[2019-03-11] MEDS ORDERED: BUMETANIDE1 MG PO (17:51)
[2019-03-11] MEDS ORDERED: FE SULFATE XX (17:52)
[2019-03-11 18:35] LABS: HEMATOCRIT 39.1 % (39.0-50.0); HEMOGLOBIN 11.8 g/dl (14.0-18.0); IMMATURE GRANULOCYTES 0.3 % (0.0-5.0); MEAN CELL VOLUME 95.1 fL CALC (80.0-100.0); MEAN CORPUSCULAR HGB 28.7 pG CALC (26.0-32.0); MEAN CORPUSCULAR HGB CONC 30.2 g/L CALC (32.0-36.0); NEUT# 2.12 thou/uL (1.82-7.42); RED BLOOD COUNT 4.11 mill/uL (4.70-6.10); RED CELL DISTRI WIDTH 17.2 % (11.5-15.5)
[2019-03-11 18:41] LABS: ALBUMIN 3.6 g/dL (3.2-5.0); BILIRUBIN, TOTAL 1.1 mg/dL (0.0-1.4); CREATININE 1.8 mg/dL (0.7-1.3); INTERNATIONAL NORMALIZED RATIO 1.9 RATIO (0.7-1.3); MAGNESIUM 1.7 mg/dL (1.6-2.3); POTASSIUM 3.8 mmol/l (3.5-5.1); PROTHROMBIN TIME 19.1 SECONDS (9.0-12.5); TOTAL PROTEIN 6.4 g/dL (6.3-8.2)
[2019-03-11 19:11] LABS: TSH, 3RD GENERATION 3.24 uIU/mL (0.47 - 4.68)
[2019-03-11 19:31] LABS: URINE BILIRUBIN - DIPSTICK NEGATIVE (NEGATIVE); URINE BLOOD DIPSTICK SMALL (NEGATIVE); URINE COLOR YELLOW; URINE GLUCOSE - DIPSTICK NEGATIVE (NEGATIVE); URINE KETONE NEGATIVE (NEGATIVE); URINE LEUK ESTERASE NEGATIVE (NEGATIVE); URINE NITRITE - DIPSTICK NEGATIVE (Negative); URINE PROTEIN - DIPSTICK 100 mg/dL (NEG-TRACE); URINE SPECIFIC GRAVITY 1.025
[2019-03-11 19:36] LABS: URINE WBC 0-2 WBC/hpf (0-5)
[2019-03-11] MEDS ORDERED: FERROUS SULF325 M3 PO (19:44)
[2019-03-11 20:18] VITALS: BP 142/85
== END 2019-03-11 20:45 | disposition home or self-care (01) ==
LOC: ED 17:41
PROVIDERS: Emergency Medicine
DX: R53.1 Weakness (principal); D64.9 Anemia, unspecified; E11.22 Type 2 diabetes mellitus with diabetic chronic kidney disease; N18.9 Chronic kidney disease, unspecified; I48.91 Unspecified atrial fibrillation; I50.9 Heart failure, unspecified; M06.9 Rheumatoid arthritis, unspecified; Z79.01 Long term (current) use of anticoagulants; R94.31 Abnormal electrocardiogram [ECG] [EKG]

== ENCOUNTER 2019-03-19 17:20 | Emergency (ER) | payer MEDICARE ==
[~2019-03-19] VITALS: Ht 198.1 cm; Wt 125.0 kg
[~2019-03-19 17:20] MED LIST changes: +FE SULFATE XX; +FERROUS SULF325 M3 PO; +LISINOPRIL20 M1 PO; -ZESTRIL/PRINIV2.5 MG PO
[2019-03-19 17:39] LABS: HEMATOCRIT 40.1 % (39.0-50.0); HEMOGLOBIN 12.3 g/dl (14.0-18.0); MEAN CELL VOLUME 93.9 fL CALC (80.0-100.0); MEAN CORPUSCULAR HGB 28.8 pG CALC (26.0-32.0); MEAN CORPUSCULAR HGB CONC 30.7 g/L CALC (32.0-36.0); NEUT# 2.34 thou/uL (1.82-7.42); RED BLOOD COUNT 4.27 mill/uL (4.70-6.10); RED CELL DISTRI WIDTH 17.2 % (11.5-15.5)
[2019-03-19 17:58] LABS: CREATININE 1.8 mg/dL (0.7-1.3); POTASSIUM 3.6 mmol/l (3.5-5.1)
[2019-03-19 18:23] LABS: BILIRUBIN, TOTAL 1.1 mg/dL (0.0-1.4); TOTAL PROTEIN 7.2 g/dL (6.3-8.2)
[2019-03-19 18:25] LABS: INTERNATIONAL NORMALIZED RATIO 2.4 RATIO (0.7-1.3); PROTHROMBIN TIME 23.7 SECONDS (9.0-12.5)
[2019-03-19 18:40] LABS: URINE BILIRUBIN - DIPSTICK NEGATIVE (NEGATIVE); URINE BLOOD DIPSTICK SMALL (NEGATIVE); URINE COLOR YELLOW; URINE GLUCOSE - DIPSTICK NEGATIVE (NEGATIVE); URINE KETONE NEGATIVE (NEGATIVE); URINE LEUK ESTERASE NEGATIVE (NEGATIVE); URINE NITRITE - DIPSTICK NEGATIVE (Negative); URINE PROTEIN - DIPSTICK 100 mg/dL (NEG-TRACE); URINE SPECIFIC GRAVITY 1.025; URINE UROBILINOGEN - DIPSTICK 0.2 E.U./dL (0.2)
[2019-03-19 18:42] LABS: URINE WBC 0-2 WBC/hpf (0-5)
[2019-03-19 18:57] VITALS: BP 124/75
== END 2019-03-19 20:00 | disposition home or self-care (01) ==
LOC: ED 17:20
PROVIDERS: Family Medicine
DX: R53.83 Other fatigue (principal); E83.52 Hypercalcemia; I48.91 Unspecified atrial fibrillation; I50.9 Heart failure, unspecified; E11.9 Type 2 diabetes mellitus without complications; R94.31 Abnormal electrocardiogram [ECG] [EKG]

== ENCOUNTER 2019-03-21 15:22 | Observation (INO) | payer MEDICARE ==
[~2019-03-21] VITALS: Ht 198.1 cm; Wt 125.9 kg
--- NOTE | 2019-03-21 15:39 | NUR ---
PT ARRIVES TO ROOM VIA EMS WITH COMPLAINT OF WEAKNESS, WORSE TODAY.
[2019-03-21 16:44] LABS: HEMATOCRIT 38.9 % (39.0-50.0); HEMOGLOBIN 11.9 g/dl (14.0-18.0); IMMATURE GRANULOCYTES 0.3 % (0.0-5.0); MEAN CELL VOLUME 94.4 fL CALC (80.0-100.0); MEAN CORPUSCULAR HGB 28.9 pG CALC (26.0-32.0); MEAN CORPUSCULAR HGB CONC 30.6 g/L CALC (32.0-36.0); NEUT# 2.35 thou/uL (1.82-7.42); RED BLOOD COUNT 4.12 mill/uL (4.70-6.10); RED CELL DISTRI WIDTH 16.6 % (11.5-15.5)
[2019-03-21 16:46] LABS: URINE BILIRUBIN - DIPSTICK NEGATIVE (NEGATIVE); URINE BLOOD DIPSTICK MODERATE (NEGATIVE); URINE COLOR YELLOW; URINE GLUCOSE - DIPSTICK NEGATIVE (NEGATIVE); URINE KETONE NEGATIVE (NEGATIVE); URINE LEUK ESTERASE NEGATIVE (NEGATIVE); URINE NITRITE - DIPSTICK NEGATIVE (Negative); URINE PH 5.5 (4.5-8.0); URINE PROTEIN - DIPSTICK 100 mg/dL (NEG-TRACE); URINE SPECIFIC GRAVITY >=1.030; URINE UROBILINOGEN - DIPSTICK 0.2 E.U./dL (0.2)
[2019-03-21 16:50] LABS: BARBITURATES NEGATIVE (NEGATIVE); COCAINE NEGATIVE (NEGATIVE); METHADONE NEGATIVE (NEGATIVE); OXCYCODONE NEGATIVE (NEGATIVE); TETRAHYDROCANNABIONOL NEGATIVE (NEGATIVE); TRICYLIC ANTIDEPRESSANTS NEGATIVE (NEGATIVE)
[2019-03-21 16:54] LABS: URINE RBC 0-2 RBC/hpf (0-5)
[2019-03-21 17:01] LABS: PROTHROMBIN TIME 17.6 SECONDS (9.0-12.5)
[2019-03-21 17:06] LABS: ALBUMIN 3.7 g/dL (3.2-5.0); BILIRUBIN, TOTAL 1.4 mg/dL (0.0-1.4); CREATININE 1.6 mg/dL (0.7-1.3); POTASSIUM 3.6 mmol/l (3.5-5.1); TOTAL PROTEIN 6.6 g/dL (6.3-8.2)
[2019-03-21 17:11] LABS: INTERNATIONAL NORMALIZED RATIO 1.7 RATIO (0.7-1.3)
--- NOTE | 2019-03-21 17:21 | NUR ---
PT STATES THAT HE WOULD LIKE TO ULTIMATELY BE PLACED IN [facility] OR SIMILAR PER [facility] TREND IN BEING ABLE TO TAKE CARE OF HIMSELF, INCREASED WEAKNESS.
[2019-03-21 17:38] LABS: TSH, 3RD GENERATION 2.53 uIU/mL (0.47 - 4.68)
[2019-03-21] MEDS ORDERED: FUROSEMIDE20 MG PO (18:02)
--- NOTE | 2019-03-21 18:16 | NUR ---
PT UPDATED ON KNOWN RESULTS, AWAITS PLAN OF CARE.
--- NOTE | 2019-03-21 19:21 | NUR ---
REPORT PROVIDED BY LAURIE MARCUS. ALL QUESTIONS AND CONCERNS WERE ADDRESSED AT THIS TIME.
--- NOTE | 2019-03-21 19:37 | NUR ---
REPORT PROVIDED TO LILIBETH SULLIVAN FOR ADMISSION. ALL QUESTIONS AND CONCERNS WERE ADDRESSED AT THIS TIME.
[2019-03-21 20:10] VITALS: BP 141/80
--- NOTE | 2019-03-21 21:00 | NUR ---
PATIENT ADMITTED FROM ER VIA STRETCHER WITH ER STAFF IN ATTENDANCE. PATIENT IS MAX TRANSFER FROM STRETCHER TO BED. PATIENT IS OBESE AND LIVES ALONE. PATIENT IS AWAKE ALERT AND ORIENTEDX3 WITH O2 VIA NASAL CANNULA IN PLACE. PATIENT STATES THAT HE DOES ALREADY HAVE O2 AT HOME. PATIENT WITH IV SITE TO LAC INTACT AND FLUSHES FREELY. AGUILERA CATH IS PATENT AND DRAINING YELLOW URINE. PATIENT STATES THAT THE CATH WAS CHANGED YESTERDAY BY HOME HEALTH-NURSE CAN CLEANER. PATIENT SOILED CLOTHING REMOVED. PATIENT WAS GIVEN PERSONAL/PERICARE INCLUDING AGUILERA CATH CARE. PATIENT WAS DIRTY AND RED IN GROIN FOLDS. STAT-LOCK DIRTY AND REMOVED. REPLACED WITH LEG STRAP. PATIENT STATES THT HE CALL 911 BECAUSE HE HAS BECOME TOO WEAK TO CARE FOR HIMSELF. [id number] WITH SANDWICH, PUDDING AND JUICE-PATIENT ATE 100%. PATIENT ORIENTED TO ROOM AND SURROUNDINGS. INSTRUCTED ON USE OF NURSE CALL LIGHT TV REMOTE AND PHONE. SAFETY PRECAUTIONS REINFORCED. VOICING OF CONCERNS ENCOURAGED. CALL LIGHT IN REACH. WILL CONT TO MONITOR.
--- NOTE | 2019-03-22 02:33 | NUR ---
PATIENT APPEARS SLEEPING AT THIS TIME POSITIONED ON RIGHT SIDE WITH EYES CLOSED. O2 VIA NASAL CANNULA IN PLACE AT 2LPM. RESP ARE EVEN AND UNLABORED. AGUILERA PATENT AND DRAINING YELLOW URINE. CALL LIGHT IN REACH. WILL CONT TO MONITOR.
--- NOTE | 2019-03-22 04:00 | NUR ---
PATIENT RESTING IN BED BED AT THIS TIME-AWAKE ALERT WITH NO COMPLAINTS AT THIS TIME EXCEPT FOR SOME SLIGHT BURNING UPON URINATION. VOIDED 400CC OF DARK TEA COLORED URINE AT THIS TIME. IVF NS HUNS AND INFUSING VIA LEFT AC SITE AT 125CC/HR. SITE REMAINS HEALTHY. SAFETY PRECAUTIONS REINFORCED. ENCOURAGED PO FLUIDS. CALL LIGHT IN REACH. WILL CONT TO MONITOR.
--- NOTE | 2019-03-22 04:13 | NUR ---
PATIENT RESTING IN BED-APPEARS SLEEPING AT THIS TIME WITH O2 VIA NASAL CANNULA IN PLACE. AGUILERA PATENT AND DRAINING YELLOW URINE. CALL LIGHT IN REACH. WILL CONT TO MONITOR.
[2019-03-22 04:43] VITALS: BP 127/75
--- NOTE | 2019-03-22 07:29 | NUR ---
REPORT RECEIVED FROM LAURIE MCELROY. PT SLEEPING AT THIS TIME. SUPINE IN BED. CALL LIGHT WITHIN REACH. WILL CONTINUE TO MONITOR.
[2019-03-22] MEDS ORDERED: BUMETANIDE2 MG PO (08:44)
[2019-03-22 08:47] VITALS: BP 109/57
--- NOTE | 2019-03-22 10:08 | NUR ---
DR. CUMMINS IN TO SEE PT. PLAN OF CARE UPDATED.
--- NOTE | 2019-03-22 15:00 | NUR ---
PT TRANSFERED TO CT VIA STRETCHER. STABLE AT THIS TIME.
[2019-03-22 15:25] VITALS: BP 96/50
--- NOTE | 2019-03-22 16:31 | NUR ---
PT SLEEPING AT THIS TIME. CALL LIGHT WITHIN REACH.
[2019-03-22 20:07] VITALS: BP 115/72
--- NOTE | 2019-03-23 00:38 | NUR ---
PT SCRATCHED HIS ARM. WOUND CLEANED WITH SALINE, BANDAGE APPLIED. CALL LOUIS WITHIN REACH WILL CONTINUE TO MONITOR.
--- NOTE | 2019-03-23 04:13 | NUR ---
PT ASSISTED TO SIT UP AT THE SIDE OF THE BED PER PT REQUEST. SAFETY PRECAUTIONS IN PLACE. WILL CONTINUE TO MONITOR.
[2019-03-23 04:57] VITALS: BP 141/80
[2019-03-23 05:52] LABS: HEMATOCRIT 39.6 % (39.0-50.0); MEAN CELL VOLUME 94.7 fL CALC (80.0-100.0); MEAN CORPUSCULAR HGB 28.7 pG CALC (26.0-32.0); MEAN CORPUSCULAR HGB CONC 30.3 g/L CALC (32.0-36.0); RED BLOOD COUNT 4.18 mill/uL (4.70-6.10); RED CELL DISTRI WIDTH 16.5 % (11.5-15.5)
[2019-03-23 05:58] LABS: INTERNATIONAL NORMALIZED RATIO 1.7 RATIO (0.7-1.3); PROTHROMBIN TIME 17.8 SECONDS (9.0-12.5)
[2019-03-23 06:12] LABS: CREATININE 1.6 mg/dL (0.7-1.3)
[2019-03-23 06:19] LABS: MAGNESIUM 1.9 mg/dL (1.6-2.3)
--- NOTE | 2019-03-23 07:10 | NUR ---
PT REPORT RECIEVED FROM LAURIE ALVAREZ. PT SLEEPING. NO S/S OF DISTRESS. CALL LIGHT IN REACH. WILL CONTINUE TO MONITOR.
--- NOTE | 2019-03-23 07:47 | NUR ---
PT A/O X3. SPEECH IS CLEAR. RESP EVEN AND UNLABORED. UPPER LOBES CLEAR, LOWER LOBES DIMINISHED. GOOD BOWEL SOUNDS. WEAK RADIAL/PEDAL PULSES. #16 EMS IV NS @150. SITE APPEARS HEALTHY. TRACE OF EDEMA TO BILATERAL ANKLES. MILD REDNESS TO BILLY AREA. SKIN INTACT. AGUILERA INTACT; DRAINING CLEAR YELLOW URINE. PT C/O GENERALIZED PAIN; MEDICATED W/ LORTAB 5/325 PO. REPOSITIONED FOR COMFORT. PT DENIES ANY FURTHER NEEDS. POC DISCUSSED. SAFETY PRECAUTIONS IN PLACE. CALL LIGHT IN REACH. WILL CONTINUE TO MONITOR.
[2019-03-23 07:56] VITALS: BP 148/80
--- NOTE | 2019-03-23 11:40 | NUR ---
PT SLEEPING. NO C/O PAIN OE NEEDS. CALL LIGHT IN REACH. WILL CONTINUE TO MONITOR.
[2019-03-23 15:23] VITALS: BP 125/64
--- NOTE | 2019-03-23 17:02 | NUR ---
PT RESTING. NO C/O PAIN OR NEEDS. CALL LIGHT IN REACH. WILL CONTINUE TO MONITOR.
--- NOTE | 2019-03-23 19:09 | NUR ---
REPORT RECEIVED FROM LUL MILLER. PT RESTING IN BED, NO S/S OF DISTRESS AT THIS TIME. CALL LOUIS WITHIN REACH. WILL CONTINUE TO MONITOR.
[2019-03-23 20:10] VITALS: BP 128/75
--- NOTE | 2019-03-23 20:10 | NUR ---
PT RESTING IN BED. ALERT AND ORIENTED. RESPIRATIONS EVEN AND UNLABORED ON O2 @ 2L VIA NC. LUNGS SOUND CLEAR/DIMINISHED. AGUILERA DRAINING TO GRAVITY. SAFETY PRECAUTIONS IN PLACE. WILL CONTINUE TO MONITOR.
--- NOTE | 2019-03-24 00:20 | NUR ---
PT FOUND WITH ONE FOOT ON THE FLOOR, SLID DOWN IN BED. ASSISTED PT UP INTO BED. SAFETY PRECAUTIONS IN PLACE. WILL CONTINUE TO MONITOR.
[2019-03-24 05:08] VITALS: BP 138/74
[2019-03-24 05:12] LABS: INTERNATIONAL NORMALIZED RATIO 2.1 RATIO (0.7-1.3); PROTHROMBIN TIME 21.4 SECONDS (9.0-12.5)
[2019-03-24 05:27] LABS: ALBUMIN 3.8 g/dL (3.2-5.0); CREATININE 1.6 mg/dL (0.7-1.3); POTASSIUM 3.9 mmol/l (3.5-5.1); TOTAL PROTEIN 6.6 g/dL (6.3-8.2)
[2019-03-24 05:36] VITALS: BP 105/66
[2019-03-24 05:38] LABS: BILIRUBIN, TOTAL 0.7 mg/dL (0.0-1.4)
[2019-03-24 08:00] VITALS: BP 115/68
--- NOTE | 2019-03-24 08:00 | NUR ---
Receved pt sitting on side of bed. Assessment complete. Pt iv site to lac leaking, new site started. Discussed plan of care. Pt denies any needs at this time. Set up with breakfast tray.
--- NOTE | 2019-03-24 10:48 | NUR ---
Dr Verduzco at pts bedside. Discussed discharge to rehab.
[2019-03-24] MEDS ORDERED: LORTAB5 PO (11:02)
[2019-03-24] MEDS ORDERED: PREDNISONE10 MG PO (11:02)
[2019-03-24] MEDS ORDERED: Levaquin PO (11:02)
--- NOTE | 2019-03-24 11:50 | NUR ---
PT COMPLAINTS OF GENERALIZED PAIN FROM HX OF RA. MEDICATED PER DRS ORDERS.
--- NOTE | 2019-03-24 12:54 | NUR ---
MIRLAX AND COLACE GIVEN ORDERED.
--- NOTE | 2019-03-24 14:07 | NUR ---
REPORT GIVEN TO PRINCESS AT [facility]. STATES PT DOES NOT NEED TO HAVE BM PRIOR TO LEAVING.
--- NOTE | 2019-03-24 14:18 | NUR ---
CALL PLACED TO [facility] REGARDING TRANSFER TO TCU OF [facility]. SPOKE TO MARIAM GAVE PT INFORMATION AND WAS TOLD THAT THEY WOULD BE HERE IN AN HOUR TO PICK PT UP.
--- NOTE | 2019-03-24 14:47 | NUR ---
BED BATH GIVEN. PT AWAITING TRANSPORT.
--- NOTE | 2019-03-24 16:42 | NUR ---
PT IN LOW FOLWERS RESTING WITH EYES CLOSED. RESP EASY. PT AWAITING TRANSPORT. TCU NOTIFIED.
--- NOTE | 2019-03-24 16:50 | NUR ---
[facility] HERE FOR TRANSPORT. REPORT GIVEN. PT LEFT WITH ALL BELONGINGS IN STABLE CONDITION.
== END 2019-03-24 17:00 ==
LOC: ED 15:22 → ED-I 15:37 → ED 15:37 → ED-I 17:56 → ED 18:37 → MS2 18:38
PROVIDERS: Emergency Medicine; Internal Medicine; ADMIT Internal Medicine; ATTEND Internal Medicine
PROC: 3E0234Z Introduction of Serum, Toxoid and Vaccine into Muscle, Percutaneous Approach (ICD-10-PCS; principal; 2019-03-23)
DX: M06.9 Rheumatoid arthritis, unspecified (principal); J18.9 Pneumonia, unspecified organism; J90 Pleural effusion, not elsewhere classified; R91.8 Other nonspecific abnormal finding of lung field; E21.3 Hyperparathyroidism, unspecified; E83.52 Hypercalcemia; E11.22 Type 2 diabetes mellitus with diabetic chronic kidney disease; N18.3 Chronic kidney disease, stage 3 (moderate); I48.2 Chronic atrial fibrillation; I50.9 Heart failure, unspecified; N40.1 Benign prostatic hyperplasia with lower urinary tract symptoms; R33.8 Other retention of urine; Z99.3 Dependence on wheelchair; Z79.01 Long term (current) use of anticoagulants; Z23 Encounter for immunization
CPT/HCPCS: J3475

== ENCOUNTER 2019-05-03 13:07 | Inpatient (IN) | payer MEDICARE ==
[~2019-05-03] VITALS: Ht 198.1 cm; Wt 142.4 kg
[~2019-05-03 13:07] MED LIST changes: +BUMETANIDE2 MG PO; +FUROSEMIDE20 MG PO; +LORTAB5 PO; +Levaquin PO; +PREDNISONE10 MG PO; +WARFARIN5 MG PO
--- NOTE | 2019-05-03 13:07 | NUR ---
PT TO ROOM 9 VIA EMS PT PLACED ON O2 FOR DECREASED O2 SAT
[2019-05-03 14:03] LABS: HEMATOCRIT 37.1 % (39.0-50.0); HEMOGLOBIN 11.3 g/dl (14.0-18.0); IMMATURE GRANULOCYTES 0.2 % (0.0-5.0); MEAN CELL VOLUME 96.9 fL CALC (80.0-100.0); MEAN CORPUSCULAR HGB 29.5 pG CALC (26.0-32.0); MEAN CORPUSCULAR HGB CONC 30.5 g/L CALC (32.0-36.0); NEUT# 3.9 thou/uL (1.82-7.42); RED BLOOD COUNT 3.83 mill/uL (4.70-6.10); RED CELL DISTRI WIDTH 17.8 % (11.5-15.5)
--- NOTE | 2019-05-03 14:25 | NUR ---
PT RESTING QUIETLY ON STRETCHER, WATCHING TV, WARM BLANKET GIVEN, ADVISED OF WAIT TIME FOR TESTING TO BE DONE. PT VOICES UNDERSTANDING.
[2019-05-03 14:28] LABS: ALBUMIN 3.3 g/dL (3.2-5.0); CREATININE 1.5 mg/dL (0.7-1.3); POTASSIUM 3.6 mmol/l (3.5-5.1)
[2019-05-03 14:36] LABS: BILIRUBIN, TOTAL 1.4 mg/dL (0.0-1.4)
--- NOTE | 2019-05-03 15:30 | NUR ---
NANDO PITTING EDEMA TO BOTH LEGS AND FEET, UNABLE TO OBTAIN PEDAL PULSE. DR. WRIGHT NOTIFIED. SMALL SKIN TEARS ON RIGHT LOWER CALF AND BOTTOM OF RIGHT FOOT, WEEPING NOTED TO BOTH LEGS. SMALL BLACK BLISTER TO LATERAL SIDE OF LEFT FOOT WITH REDNESS AND EDEMA TO REMAINING TOES.
[2019-05-03] MEDS ORDERED: LISINOPRIL5 MG PO (15:36)
--- NOTE | 2019-05-03 16:26 | NUR ---
ADMITTING DOCTOR SPEAKIG WITH PT
--- NOTE | 2019-05-03 16:27 | NUR ---
DRESSING APPLIED TO RIGHT LEG AND BOTTOM OF RIGHT FOOT WITH SKIN TEARS.
--- NOTE | 2019-05-03 16:39 | NUR ---
S: LUIS ALBERTO VORA is a 64 M who presents with cellulitis. He has a history of T2DM, CKD, RA, chronic A-fib, urinary retention, CHF. All medications in patient's chart were reviewed. O: VS: BP 134/90mmHg, P 94bpm, RR 20bpm ,T 98.2 F W 140kg, HT 198.12cm, Scr=1.5, CrCl= 78ml/min P: Patient is on Cefapime and Vancomycin. Vancomycin ordered for pharmacy to dose. Start Vancomycin 1750mg IV Q12H. Vancomycin trough is drawn before the 4th dose on 05/05/2019 @9:30. Vancomycin goal trough is between <10-20 mcg/ml>. Pharmacy will follow and or advise on antibiotics use as needed.
[2019-05-03 16:42] LABS: URINE BILIRUBIN - DIPSTICK NEGATIVE (NEGATIVE); URINE BLOOD DIPSTICK LARGE (NEGATIVE); URINE COLOR YELLOW; URINE GLUCOSE - DIPSTICK NEGATIVE (NEGATIVE); URINE KETONE NEGATIVE (NEGATIVE); URINE LEUK ESTERASE TRACE (NEGATIVE); URINE NITRITE - DIPSTICK NEGATIVE (Negative); URINE PROTEIN - DIPSTICK 100 mg/dL (NEG-TRACE); URINE SPECIFIC GRAVITY 1.025; URINE UROBILINOGEN - DIPSTICK 0.2 E.U./dL (0.2)
--- NOTE | 2019-05-03 16:46 | NUR ---
REPORT CALLED TO SRINI SULLIVAN FOR CONTINUATION OF CARE.
[2019-05-03 16:51] LABS: URINE RBC TNTC RBC/hpf (0-5); URINE SQUAMOUS EPITHELIAL CELL FEW EPI/hpf (0-FEW)
[2019-05-03 16:52] LABS: URINE BACTERIA MANY hpf
--- NOTE | 2019-05-03 17:00 | NUR ---
Admission Note Report Given to: sbar printed to floor Transported by: x Wheelchair Stretcher Transported with: x Nurse x Transporter x Patent IV O2 Bilingual Kindergarten Teacher
[2019-05-03 17:17] LABS: PROTHROMBIN TIME 15.2 SECONDS (9.0-12.5)
--- NOTE | 2019-05-03 17:34 | NUR ---
PT ARRIVED TO FLOOR @ 1700 VIA STRETCHER. TRANSFERED TO BED BY STAFF X 6. PT ALERT AND ORIENTED. LROM BILATERAL LEGS R/T SWELLING, PAIN. DOPPLER FOR LEFT PEDAL PULSE. +3 EDEMA BILATERAL FEET. DRSG TO RIGHT FOOT APPLIED IN ED AFTER DR. CUMMINS INSPECTED WOUND. SCATTERED SCABS/BLISTERS TO LEFT LOWER LEG, CLINICAL TRIAL ASSOCIATE PER DR. CUMMINS. LUNGS CLEAR. HEART SOUDNS NORMAL AND REGULAR. REPORTS LAST BM TODAY 05/03/19. AGUILERA CATHETER IN PLACE, DARK YELLOW, CLOUDY URINE NOTED. REPORTS AGUILERA WAS CHANGED BY HOME HEALTH ON 04/29/19. REPORTS GENERALIZED PAIN OF 6 ON SCALE OF 0-10, LORTAB PO ADMINISTERED. BS 100. DINNER TRAY PROVIDED. CALL LIGHT REVIEWED AND IN REACH. PLAN OF CARE REVIEWED. PT STATES UNDERSTANDING.
[2019-05-03 18:26] LABS: INTERNATIONAL NORMALIZED RATIO 1.5 RATIO (0.7-1.3)
[2019-05-03 19:12] VITALS: BP 138/85
--- NOTE | 2019-05-03 20:11 | NUR ---
PT RESTING IN BED, NO SIGNS OF DISTRESS NOTED, RESP EVEN AND UNLABORED. DISCUSSED POC, PT VERBALIZED UNDERSTANDING. DRESSING TO RLE CDI, ABRASIONS AND WOUNDS NOTED TO LLE; CREW PERSON PER MD ORDERS. ASSESSMENT COMPLETED, CALL LIGHT IN REACH,CONTINUE TO MONITOR.
--- NOTE | 2019-05-03 22:54 | NUR ---
PT RESTING IN BED, NO SIGNS OF DISTRESS NOTED, RESP EVEN AND UNLABORED. CALL LIGHT IN REACH,CONTINUE TO MONITOR.
--- NOTE | 2019-05-04 03:13 | NUR ---
PT RESTING IN BED, ASSISTED WITH SUPERVISOR CELL EFFICIENCY REPOSITIONED PT IN BED, MEDICATED FOR PAIN. CALL LIGHT IN REACH,CONTINUE TO MONITOR.
[2019-05-04 04:18] VITALS: BP 117/74
[2019-05-04 05:36] LABS: INTERNATIONAL NORMALIZED RATIO 1.6 RATIO (0.7-1.3); PROTHROMBIN TIME 16.6 SECONDS (9.0-12.5)
[2019-05-04 05:42] LABS: ANION GAP 14 (6-22 (CALC)); BUN 29 mg/dL (8-23); BUN/CREATININE RATIO 20 (12-20 (CALC)); CARBON DIOXIDE 30 mmol/l (22-30); CHLORIDE 99 mmol/l (95-108); CREATININE 1.4 mg/dL (0.7-1.3); GFR 51 ML/MIN (>=60 (CALC)); GFR FOR AFR.AMER. > 60 ML/MIN (>=60 (CALC)); POTASSIUM 3.7 mmol/l (3.5-5.1); SODIUM 139 mmol/l (137-146)
--- NOTE | 2019-05-04 07:00 | NUR ---
SHIFT CHANGE REPORT, PT SLEELPING. DR SIERRA HERE TO EVAL, PT AWAKENED AND INFORMED OF PLAN. DR SIERRA EVALUATED WOUND TO NANDO LEGE/FEET AND GAVE ORDERS, ALSO STATED HE WILL SPEAK TO DR CUMMINS ON PLANS.
[2019-05-04 09:06] VITALS: BP 112/72
--- NOTE | 2019-05-04 12:00 | NUR ---
RELAXING IN BED, CAREGIVER HERE ASSISTING WITH MEAL, ALL NEEDS ADDRESSED.
[2019-05-04 15:50] VITALS: BP 141/80
--- NOTE | 2019-05-04 16:06 | NUR ---
SLEEPING IN RIGHT SIDED POSITION AT THIS TIME, NO SIGN DISCOMFORT, CALL LOUIS IN REACH.
--- NOTE | 2019-05-04 18:22 | NUR ---
BED CHANGED OUT TO LONGER BED TO ACCOMMODATE HEIGHT OF PT WHOSE FEET WERE HANGING OFF PREVIOUS BED, DRESSINGS CHANGED THEY HAD FALLEN OFF, PT IS NOW MORE COMFORTABLE IN NEW BED.
--- NOTE | 2019-05-04 19:15 | NUR ---
PT IS UPRIGHT IN BED, DENIES ANY NEEDS AT THIS TIME. CALL LIGHT AT SIDE. REPORT RECEIVED FROM DAY NURSE.
[2019-05-04 20:15] VITALS: BP 131/85
--- NOTE | 2019-05-04 20:23 | NUR ---
PT MEDICATED ORDERS PROVIDE, ANTIBIOTIC THERAPY RUNNING AT THIS TIME. TO SITE IN RAC/APPEARS HEALTHY. PT ASSESSMENT COMPLETE/DRESSING TO BLE CDI AT THIS TIME. AGUILERA CATHETER IS DRAINING CLEAR YELLOW URINE, STRAP TO URE. PT DENIES ANY OTHER NEEDS AT THIS TIME. CALL LIGHT AT SIDE AND AIDE IN W/PT OBTAINING ACCU-CHECK.
--- NOTE | 2019-05-04 22:03 | NUR ---
IV ANTIBIOTIC THERAPY ADMINISTERED AT THIS TIME. PT WAS SLEEPING I ENTERED ROOM AND RETURNED TO SLEEP PRIOR TO MY LEAVING. NO S/O DISTRESS NOTED AT THIS TIME. CALL LIGHT AT SIDE. LIGHTS ON LOW AND TV ON.
--- NOTE | 2019-05-05 00:48 | NUR ---
IV ANTIBIOTIC THERAPY COMPLETED AT THIS TIME. IV SITE APPEARS HEALTHY. PT WAS SLEEPING. DENIES ANY NEEDS AT THIS TIME. CALL LIGHT AT SIDE.
[2019-05-05 05:05] VITALS: BP 124/82
[2019-05-05 06:14] LABS: INTERNATIONAL NORMALIZED RATIO 1.4 RATIO (0.7-1.3); PROTHROMBIN TIME 14.4 SECONDS (9.0-12.5)
--- NOTE | 2019-05-05 07:00 | NUR ---
SHIFT CHANGE REPORT, PT AWAKE ALERT ORIENTED RESTING IN SUPINE POSITION, DENIED PAIN/DISCOMFORT, REQUESTING H2O AND ASSISTED WITH DRINK, AGUILERA CATHETER IN PLACE, DRESSING TO BLE CDI, CALL [place] IN REACH.
[2019-05-05 08:18] VITALS: BP 146/81
--- NOTE | 2019-05-05 10:54 | NUR ---
Vancomycin consult Current dose being given: 1750 mg Current dosing interval: 12 hrs Current infusion time (hrs): 2 Trough level obtained: 24 mcg/ml New rate constant (lizette): 0.046 hr-1 Half-life: 15.07 Hours Vd from levels: 99.68 Liters (0.7 L/kg) CLvanco= 4.585 L/hr Hold 1000 dose for tr=24 Vancomycin 1250 mg q 12 hrs, start tonight at 2200 Infuse over 2 hrs Expected Cpeak: 28 mcg/mL Expected Ctrough: 17 mcg/mL Next trough 05/07/19 at 0930
--- NOTE | 2019-05-05 12:00 | NUR ---
ASSISTED WITH MEAL BY NURSING STUDENTS, C/O ACHING EXTREMETIES, CONCERN ADDRESSED AND ALL NEEDS MET.
[2019-05-05] MEDS ORDERED: CLINDAMYCIN300 M1 PO (13:15)
[2019-05-05] MEDS ORDERED: CIPROFLOXACN750 MG PO (13:15)
[2019-05-05] MEDS ORDERED: MEDDOSEPAK PO (13:16)
--- NOTE | 2019-05-05 16:21 | NUR ---
PT BEING DISCHARGED, REQUEST TO HAVE SHORTS PUT ON, ADVISED SHORTS IS SOILED DIRTY BUT INSISTED ON PUTTING IT ON STATING HE WILL CHANGE IT WHEN HE GETS HOME, ADVISED HE CAN WEAR GOWN HOME BUT REFUSED AND INSISTED ON DIRTY SHORTS.
--- NOTE | 2019-05-05 16:47 | NUR ---
Discharge instructions given. Patient verbalizes understanding of same. Discharged in stable condition via Wheelchair to Home with *Other. All belongings sent with pt.
== END 2019-05-05 16:40 | disposition home health service (06) | DRG 546 ==
LOC: ED 13:07 → ED-I 15:02 → ED 15:35 → MS2 15:36
PROVIDERS: Emergency Medicine; ADMIT Internal Medicine; ATTEND Internal Medicine
DX: M05.59 Rheumatoid polyneuropathy with rheumatoid arthritis of multiple sites (principal); I13.0 Hypertensive heart and chronic kidney disease with heart failure and stage 1 through stage 4 chronic kidney disease, or unspecified chronic kidney disease; L97.428 Non-pressure chronic ulcer of left heel and midfoot with other specified severity; L97.418 Non-pressure chronic ulcer of right heel and midfoot with other specified severity; L97.528 Non-pressure chronic ulcer of other part of left foot with other specified severity; L97.518 Non-pressure chronic ulcer of other part of right foot with other specified severity; M25.70 Osteophyte, unspecified joint; E11.610 Type 2 diabetes mellitus with diabetic neuropathic arthropathy; E11.621 Type 2 diabetes mellitus with foot ulcer; E11.42 Type 2 diabetes mellitus with diabetic polyneuropathy; E11.22 Type 2 diabetes mellitus with diabetic chronic kidney disease; N18.3 Chronic kidney disease, stage 3 (moderate); I50.9 Heart failure, unspecified; I48.2 Chronic atrial fibrillation; M06.39 Rheumatoid nodule, multiple sites; N40.0 Benign prostatic hyperplasia without lower urinary tract symptoms; Z79.01 Long term (current) use of anticoagulants
CPT/HCPCS: J0692; J3370

== ENCOUNTER 2019-05-09 09:33 | Observation (INO) | payer MEDICARE ==
[~2019-05-09] VITALS: Ht 198.1 cm; Wt 142.9 kg
[~2019-05-09 09:33] MED LIST changes: +CIPROFLOXACN750 MG PO; +CLINDAMYCIN300 M1 PO; +LISINOPRIL5 MG PO; +MEDDOSEPAK PO
[2019-05-09 10:30] LABS: HEMATOCRIT 38.9 % (39.0-50.0); HEMOGLOBIN 11.7 g/dl (14.0-18.0); IMMATURE GRANULOCYTES 0.4 % (0.0-5.0); MEAN CORPUSCULAR HGB 28.9 pG CALC (26.0-32.0); MEAN CORPUSCULAR HGB CONC 30.1 g/L CALC (32.0-36.0); NEUT# 5.85 thou/uL (1.82-7.42); RED BLOOD COUNT 4.05 mill/uL (4.70-6.10); RED CELL DISTRI WIDTH 17.7 % (11.5-15.5)
[2019-05-09 10:34] LABS: URINE BILIRUBIN - DIPSTICK NEGATIVE (NEGATIVE); URINE BLOOD DIPSTICK MODERATE (NEGATIVE); URINE COLOR YELLOW; URINE GLUCOSE - DIPSTICK NEGATIVE (NEGATIVE); URINE KETONE NEGATIVE (NEGATIVE); URINE NITRITE - DIPSTICK NEGATIVE (Negative); URINE PH 5.5 (4.5-8.0); URINE PROTEIN - DIPSTICK 100 mg/dL (NEG-TRACE); URINE SPECIFIC GRAVITY 1.025; URINE UROBILINOGEN - DIPSTICK 0.2 E.U./dL (0.2)
[2019-05-09 10:37] LABS: URINE LEUK ESTERASE SMALL (NEGATIVE)
[2019-05-09 10:47] LABS: URINE RBC 0-2 RBC/hpf (0-5); URINE YEAST MANY hpf
[2019-05-09 10:50] LABS: ALBUMIN 3.3 g/dL (3.2-5.0); BILIRUBIN, TOTAL 1.3 mg/dL (0.0-1.4); CREATININE 1.5 mg/dL (0.7-1.3); MAGNESIUM 1.5 mg/dL (1.6-2.3); POTASSIUM 4.2 mmol/l (3.5-5.1); TOTAL PROTEIN 6.2 g/dL (6.3-8.2)
[2019-05-09 11:20] LABS: TSH, 3RD GENERATION 3.56 uIU/mL (0.47 - 4.68)
[2019-05-09 13:46] VITALS: BP 135/82
[2019-05-09 13:48] LABS: PROTHROMBIN TIME 18.1 SECONDS (9.0-12.5)
[2019-05-09 15:03] LABS: INTERNATIONAL NORMALIZED RATIO 1.8 RATIO (0.7-1.3)
[2019-05-09 16:55] VITALS: BP 126/65
[2019-05-09 19:20] VITALS: BP 97/61
[2019-05-10 04:20] VITALS: BP 108/70
[2019-05-10 05:26] LABS: PROTHROMBIN TIME 20.7 SECONDS (9.0-12.5)
[2019-05-10 16:23] VITALS: BP 157/84
[2019-05-10 19:03] VITALS: BP 134/84
[2019-05-11 03:17] VITALS: BP 126/76
[2019-05-11 06:06] LABS: INTERNATIONAL NORMALIZED RATIO 2.3 RATIO (0.7-1.3); PROTHROMBIN TIME 22.7 SECONDS (9.0-12.5)
[2019-05-11 07:36] VITALS: BP 130/80
[2019-05-11] MEDS ORDERED: LORTAB5 PO (11:32)
[2019-05-11] MEDS ORDERED: MEDDOSEPAK PO (11:32)
[2019-05-11] MEDS ORDERED: BUMETANIDE1 MG PO (11:32)
[2019-05-11] MEDS ORDERED: CIPROFLOXACN500 MG PO (11:32)
[2019-05-11 16:00] VITALS: BP 141/74
== END 2019-05-11 18:21 ==
LOC: ED 09:33 → ED-I 11:28 → ED 12:11 → MS2 12:12
PROVIDERS: Family Medicine; ADMIT Internal Medicine; ATTEND Internal Medicine
DX: M06.39 Rheumatoid nodule, multiple sites (principal); I13.0 Hypertensive heart and chronic kidney disease with heart failure and stage 1 through stage 4 chronic kidney disease, or unspecified chronic kidney disease; I50.9 Heart failure, unspecified; E11.22 Type 2 diabetes mellitus with diabetic chronic kidney disease; N18.9 Chronic kidney disease, unspecified; I48.20 Chronic atrial fibrillation, unspecified; E11.610 Type 2 diabetes mellitus with diabetic neuropathic arthropathy; L03.116 Cellulitis of left lower limb; L03.115 Cellulitis of right lower limb; E11.621 Type 2 diabetes mellitus with foot ulcer; L97.509 Non-pressure chronic ulcer of other part of unspecified foot with unspecified severity; Z79.01 Long term (current) use of anticoagulants